=== PATIENT | female | born 1970 | race Caucasian/White ===

== ENCOUNTER 2021-02-21 01:32 | Emergency (ER) | payer BC ==
[~2021-02-21] VITALS: Ht 165.1 cm; Wt 10352.3 kg
[~2021-02-21 01:32] MED LIST: ATORVASTATIN CA10 MG PO; AUGMENTIN 875-1 EACH PO; B COMPLETE1 EACH PO; EFFEXOR XR37.5 MG PO; FISH OIL 1,0001 EAC2 NG; FISH OIL500 MG PO; FLONASE ALLERG9.9 ML NS; GLUCOPHAGE500 MG PO; HYDROCHLOROTH12.5 M1 PO; HYDROCHLOROTH12.5 MG PO; HYDROCHLOROTHIA25 MG PO; HYDROMORPHONE HC4 MG PO; IRON325 M1 PO; KEFLEX500 MG PO; LEVOTHYROXINE50 MCG PO; METFORMIN HCL500 M1 PO; METFORMIN HCL500 MG PO; METOPROLOL SUC200 MG PO; METOPROLOL SUCC50 MG PO; MIRALAX17 GM PO; MONTELUKAST SOD10 MG PO; NORCO 5-325 TA1 EACH PO; NORCO 7.5-3251 EACH PO; NUCYNTA50 MG PO; ONDANSETRON HCL4 MG PO; POTASSIUM CHLO10 ME2 PO; POTASSIUM CHLO10 MEQ PO; PRILOSEC OTC20 MG PO; PROBIOTIC1 EAC1 PO; ROBAXIN-750750 MG PO; TOPAMAX200 MG PO; VENLAFAXINE H37.5 MG PO; VITAMIN C500 M1 PO; VITAMIN D2000 UNIT PO; ZITHROMAX250 MG PO; ZOFRAN ODT4 MG PO
== END 2021-02-21 03:12 | disposition home or self-care (01) ==
LOC: ED 01:32
DX: M25.511 Pain in right shoulder (principal); G89.29 Other chronic pain; I10 Essential (primary) hypertension; E11.9 Type 2 diabetes mellitus without complications; M47.816 Spondylosis without myelopathy or radiculopathy, lumbar region; Z88.8 Allergy status to other drugs, medicaments and biological substances; Z79.899 Other long term (current) drug therapy; Z79.84 Long term (current) use of oral hypoglycemic drugs
CPT/HCPCS: 73030; 96372; 99283-25; J1885